=== PATIENT | female | born 1985 | race Caucasian/White ===

== ENCOUNTER 2017-01-02 02:49 | Inpatient (IN) | payer OTHER ==
[2017-01-02] VITALS (7 sets, daily range): BP systolic 112–133; BP diastolic 53–78; PULSE 86–104; RESP 16–20; TEMP 97.8–99; O2SAT 99–100
[2017-01-02] MEDS ORDERED: SODIUM CHLOR 0.9% 1000 ML INJ 1,000 ML IV ONE (03:00)
[2017-01-02] MEDS ORDERED: SODIUM CHLORIDE 0.9% FLUSH 10 ML FLUSH IVF PRN (03:00)
[2017-01-02] MEDS ORDERED: ONDANSETRON HCL 4 MG/2 ML VIAL IV ONE (03:00)
[2017-01-02] MEDS ORDERED: MORPHINE SULFATE 4 MG/ML INJ IV PUSH ONE (03:00)
[2017-01-02] MEDS ORDERED: MORPHINE SULFATE 8 MG/ML INJ IV PUSH ONE (03:15)
[2017-01-02] MEDS ORDERED: ONDANSETRON HCL 4 MG/2 ML VIAL ONE ×2 (03:31→17:32)
[2017-01-02] MEDS ORDERED: IOHEXOL 350 MG/ML 10 ML VIAL (for RAD DIAG) IV ONE (03:40)
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
[2017-01-02 04:08] LABS: AUTOMATED NEUTROPHIL # 14.2 TH/MM3 (1.8-7.7); BASOPHIL # 0.1 TH/MM3 (0-0.2); BASOPHIL % 0.4 % (0.0-2.0); EOSINOPHIL # 0.3 TH/MM3 (0-0.4); EOSINOPHIL % 1.3 % (0.0-4.0); HEMATOCRIT 30.8 % (35.0-46.0); HEMO FLAGS DIFF FINAL; LYMPH % 19.6 % (9.0-44.0); LYMPHOCYTE # 3.9 TH/MM3 (1.0-4.8); MEAN CELL VOLUME 81.8 FL (80.0-100.0); MEAN CORPUSCULAR HEMOGLOBIN 26.4 PG (27.0-34.0); MEAN CORPUSCULAR HGB CONC 32.3 % (32.0-36.0); NEUT % 71.7 % (16.0-70.0); PLATELET COUNT 408 TH/MM3 (150-450); RED BLOOD COUNT 3.76 MIL/MM3 (4.00-5.30); WHITE BLOOD COUNT 19.7 TH/MM3 (4.0-11.0)
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
[2017-01-02 04:21] LABS: INTERNATIONAL NORMALIZED RATIO 1.1 RATIO; PROTHROMBIN TIME - PATIENT 11.9 SEC (9.8-11.6)
[2017-01-02] MEDS ORDERED: PROPOFOL 200 MG/20 ML AMP IV ONE ×2 (04:30→12:00)
[2017-01-02 04:39] LABS: ALKALINE PHOSPHATASE 44 U/L (45-117); ALT (GPT) 47 U/L (10-53); ANION GAP 12 MEQ/L (5-15); AST (GOT) 40 U/L (15-37); BETA HCG QUANT LESS THAN 1 MIU/ML (0-5); BICARBONATE 21.1 MEQ/L (21.0-32.0); BLOOD UREA NITROGEN 8 MG/DL (7-18); CHLORIDE 106 MEQ/L (98-107); GLOMERULAR FILTRATION RATE 69 ML/MIN (>89); SODIUM (NA) 139 MEQ/L (136-145); TOTAL BILIRUBIN ADULT 0.2 MG/DL (0.2-1.0)
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
[2017-01-02 04:42] LABS: POTASSIUM 2.6 MEQ/L (3.5-5.1)
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
[2017-01-02] MEDS ORDERED: LORazepam 2 MG/ML VIAL IV PUSH ONE (05:00)
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
[2017-01-02] MEDS ORDERED: SODIUM CHLOR 0.9% 1000 ML INJ 1,000 ML IV SCH ×2 (06:00→06:37)
[2017-01-02] MEDS ORDERED: SODIUM CHLORIDE 0.9% FLUSH 10 ML FLUSH IV FLUSH PRN ×2 (06:45→21:15)
[2017-01-02] MEDS ORDERED: HYDROmorphone HCL PF 1 MG/ML VIAL IVP PRN (06:45)
[2017-01-02] MEDS ORDERED: ONDANSETRON HCL 4 MG/2 ML VIAL IV PRN (06:45)
[2017-01-02] MEDS ORDERED: ENALAPRILAT 1.25 MG/ML VIAL IV PRN (06:45)
[2017-01-02] MEDS ORDERED: MAGNESIUM HYDROXIDE SUSP 30 ML CUP PO PRN ×2 (06:45→21:15)
[2017-01-02] MEDS ORDERED: ACETAMINOPHEN/HYDROcodone 325 MG/5 MG TAB PO PRN ×2 (06:45)
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
[2017-01-02] MEDS ORDERED: LACTULOSE SYRUP 20 GM/30 ML CUP PO PRN ×2 (08:45→21:15)
[2017-01-02] MEDS ORDERED: DOCUSATE SODIUM 100 MG CAP PO SCH (09:00)
[2017-01-02] MEDS ORDERED: DOCUSATE SODIUM 50 MG/SENNA 8.6 MG TAB PO SCH (09:00)
[2017-01-02] MEDS ORDERED: PANTOPRAZOLE SODIUM 40 MG VIAL IVP SCH (09:00)
[2017-01-02] MEDS ORDERED: ONDANSETRON HCL 4 MG/2 ML VIAL IV PUSH ONE (12:00)
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
[2017-01-02] MEDS ORDERED: ceFAZolin INJ 1,000 MG VIAL ONE (17:15)
[2017-01-02] MEDS ORDERED: GENTAMICIN SULFATE 80 MG/2 ML VIAL ONE (17:15)
[2017-01-02] MEDS ORDERED: MIDAZOLAM HCL 2 MG/2 ML VIAL ONE (17:28)
[2017-01-02] MEDS ORDERED: FAMOTIDINE 20 MG/2 ML VIAL ONE (17:28)
[2017-01-02] MEDS ORDERED: ACETAMINOPHEN 1000 MG/100 ML VIAL IV ONE (17:33)
[2017-01-02] MEDS ORDERED: POTASSIUM CHLOR 20 MEQ PREMIX 100 ML ONE (17:54)
[2017-01-02] MEDS ORDERED: SUGAMMADEX SODIUM 200 MG/2 ML VIAL IV PUSH ONE ×2 (19:33)
[2017-01-02] MEDS ORDERED: HYDROmorphone HCL PF 2 MG/ML VIAL ONE (19:34)
--- NOTE | 2017-01-02 20:40 | RADRPT ---
EXAM DATE/TIME: 01/02/2017 20:07 [facility] COMPARISON: FOOT LEFT COMPLETE ([id number]), January 02, 2017, 6:35. ANKLE RIGHT LIMITED (AP&LAT), January 02, 2017, 4:38 . FOOT RIGHT LIMITED (2VWS), January 02, 2017, 3:58. ANKLE RIGHT COMPLETE ([id number]), January 02, 2017, 3: 44. INDICATIONS : ORIF right ankle. MEDICAL HISTORY : None. SURGICAL HISTORY : None. ENCOUNTER: Initial ACUITY: 1 day PAIN SCORE: 0/10 LOCATION: Right ankle FINDINGS: Side plate and multiple screws traverse the tibia and fibula with excellent anatomical alignment of t he fracture fragments. CONCLUSION: Intact postsurgical changes for technique. Shauna Ramírez MD on January 02, 2017 at 20:38 Board Certified Radiologist. This report was verified electronically.
[2017-01-02] MEDS ORDERED: fentaNYL CITRATE 250 MCG/5 ML AMP ONE (20:57)
[2017-01-02] MEDS ORDERED: *morphine SULFATE 8 MG/ML PERIprocedure ONLY ONE ×2 (21:08→21:20)
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
[2017-01-02] MEDS ORDERED: TEMAZEPAM 15 MG CAP PO PRN (21:15)
[2017-01-02] MEDS ORDERED: MISCELLANEOUS PHARMACY INFORMATION XX ONE (21:15)
[2017-01-02] MEDS ORDERED: ALUMINUM/MAGNESIUM/SIMETH 30 ML CUP PO PRN (21:15)
[2017-01-02] MEDS ORDERED: NALOXONE HCL 0.4 MG/ML AMP IV PRN (21:15)
[2017-01-02] MEDS ORDERED: oxyCODONE/ACETAMINOPHEN 5 MG/325 MG TAB PO PRN ×2 (21:15)
[2017-01-02] MEDS ORDERED: MISCELLANEOUS NURSING INFORMATION XX PRN (21:15)
[2017-01-02] MEDS ORDERED: Post-op Orders (for Pharmacy) MISC XX ONE (21:15)
[2017-01-02] MEDS ORDERED: BISACODYL 10 MG SUPP RECTAL PRN (21:15)
[2017-01-02] MEDS ORDERED: MORPHINE SULFATE 30 MG/30 ML PCA IV SCH (21:15)
[2017-01-02] MEDS ORDERED: SENNOSIDES 8.6 MG TAB PO PRN (21:15)
[2017-01-02] MEDS ORDERED: MORPHINE SULFATE 8 MG/ML INJ IV PUSH PRN (21:15)
[2017-01-02] MEDS ORDERED: ACETAMINOPHEN 325 MG TAB PO PRN (21:15)
[2017-01-02] MEDS ORDERED: *HYDROmorphone PF 1 MG VIAL PERIprocedural Use ONLY ONE (21:32)
[2017-01-02] MEDS: LACTATED RINGER'S 1000 ML INJ 1,000 ML IV SCH (21:40)
[2017-01-02] MEDS ORDERED: DO NOT ADM ANY ANTICOAGULANT DRUGS PRN (21:45)
[2017-01-02] MEDS: PCA - TOTAL MG MORPHINE DELIVERED PER SHIFT SCH (22:00)
[2017-01-02] MEDS: ONDANSETRON HCL 4 MG/2 ML VIAL IVP PRN (22:43)
[2017-01-02] MEDS ORDERED: GADODIAMIDE PF 287 MG/ML 5 ML VIAL (for RAD MRI) IV ONE (23:22)
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
[2017-01-02] MEDS: ceFAZolin 2 GM PREMIX 50 ML IV SCH (23:45)
--- NOTE | 2017-01-02 23:48 | RADRPT ---
EXAM DATE/TIME: 01/02/2017 22:55 This report includes an Addendum and supersedes previous reports for this exam. [facility] COMPARISON: CT BRAIN W/O CONTRAST, January 02, 2017, 3:20. INDICATIONS : CVA. Facial droop post op. CONTRAST: 14 cc Omniscan (gadodiamide) IV MEDICAL HISTORY : None. SURGICAL HISTORY : Right ankle surgery. ENCOUNTER: Subsequent ACUITY: 1 day PAIN SCORE: 0/10 LOCATION: head. TECHNIQUE: Multiplanar, multisequence MRI of the brain was performed both prior to and following the administrat ion of paramagnetic contrast. FINDINGS: CEREBRUM: The ventricles are normal for age. No evidence of midline shift, mass lesion, hemorrhage. No extraa xial fluid collections are seen. The pituitary gland and suprasellar cistern are normal in configura tion. WHITE MATTER: No significant signal abnormalities are seen in the white matter. POSTERIOR FOSSA: The cerebellum and brainstem are intact. The 4th ventricle is midline. The cerebellopontine angle is unremarkable. The cerebellar tonsils are normal in position. DIFFUSION IMAGING: There are multiple areas of restricted diffusion predominantly on the right side with a few small are as in the left occipital lobe. The more prominent areas of restricted diffusion are noted in the righ t occipital lobe. Several small areas of restricted diffusion are noted along the right cerebral vert ex. EXTRACRANIAL: The visualized portions of the orbits and paranasal sinuses are unremarkable. POST-CONTRAST: No abnormal areas of parenchymal or dural enhancement. No evidence of blood-brain barrier breakdown. CONCLUSION: 1. There are multiple areas of restricted diffusion predominantly involving the right occipital lobe as well as high along the right cerebral vertex. A few small areas of restricted diffusion are noted in the left occipital lobe. These findings would indicate focal areas of acute infarction. The multip licity suggests embolic etiology. 2. The rest examination is unremarkable. Hima Pisano MD on January 02, 2017 at 23:42 Board Certified Radiologist. This report was verified electronically. ADDENDUM: No acute intracranial hemorrhage is demonstrated. Hima Pisano MD on January 03, 2017 at 0:59 Board Certified Radiologist. This report was verified electronically.
[2017-01-03] VITALS (8 sets, daily range): BP systolic 94–124; BP diastolic 48–70; PULSE 71–102; RESP 16–18; TEMP 97.9–100.2; O2SAT 97–100
[2017-01-03] MEDS ORDERED: ASPIRIN 81 MG CHEW TAB PO ONE (02:00)
[2017-01-03] MEDS: ONDANSETRON HCL 4 MG/2 ML VIAL IVP PRN (02:18)
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
[2017-01-03] MEDS: PCA - TOTAL MG MORPHINE DELIVERED PER SHIFT SCH ×2 (06:32→13:05)
[2017-01-03] MEDS: ceFAZolin 2 GM PREMIX 50 ML IV SCH ×2 (06:32→12:25)
--- NOTE | 2017-01-03 07:03 | PD.ORT.PN ---
Subjective Pain Scale: 6 Subjective Remarks The patient is awake and alert and answers questions appropriately. Her family is at the bedside. She does complain of pain. She feels that the splint is "tight". She also relates nausea with the oral pain medication. Objective Vitals Vital Signs Date Time Temp Pulse Resp B/P Pulse Ox O2 Delivery O2 Flow Rate FiO2 01/03/17 06:32 16 01/03/17 04:00 98.7 83 16 94/48 99 01/03/17 03:00 71 01/03/17 00:00 98.4 76 18 112/62 97 01/02/17 22:00 98.4 77 14 101/53 100 Simple Mask 4 01/02/17 21:45 90 14 103/57 97 Nasal Cannula 2 01/02/17 21:40 14 01/02/17 21:30 84 16 106/57 97 Nasal Cannula 2 01/02/17 21:15 88 16 111/59 100 Room Air 01/02/17 21:00 91 16 108/54 99 Room Air 01/02/17 20:46 99.4 89 18 99/61 94 Room Air 01/02/17 15:46 98.5 86 18 112/53 99 01/02/17 10:00 99.0 100 18 120/57 100 01/02/17 07:57 104 16 123/65 100 Room Air I/O 01/02/17 01/02/17 01/02/17 01/03/17 01/03/17 01/03/17 07:00 15:00 23:00 07:00 15:00 23:00 Intake Total 1425 ml Output Total 50 ml Balance 1375 ml Intake IV Total 125 ml Other 1300 ml Output Estimated Blood Loss 50 ml Result Diagram: 01/02/17 0300 01/02/17 0300 Imaging Last 24 hours Impressions Brain MRI 01/02/172111 Signed Impressions: Service Date/Time: Monday, January 02, 2017 22:55 - CONCLUSION: 1. There are multiple areas of restricted diffusion predominantly involving the right occipital lobe as well as high along the right cerebral vertex. A few small areas of restricted diffusion are noted in the left occipital lobe. These findings would indicate focal areas of acute infarction. The multiplicity suggests embolic etiology. 2. The rest examination is unremarkable. Hima Pisano MD ADDENDUM: No acute intracranial hemorrhage is demonstrated. Hima Pisano MD Objective Remarks The right lower extremity splint is intact. She moves her toes freely. She has slight decreased sensation of the tips. She denies calf pain. Assessment & Plan Ortho Post Op Day #: 1 Problem List: (1) Displaced bimalleolar fracture of right lower leg (2) Fracture dislocation of right ankle Assessment and Plan The findings were discussed. The anterior part of the splint including the soft roll to the skin was opened. Will change pain medication secondary to the nausea with the oxycodone. Anticipate discharge 1-2 days depending on pain control. Rowdy Sherman MD Jan 03, 2017 07:03
--- NOTE | 2017-01-03 07:44 | HHI.PR ---
Subjective Remarks sr no hx ivda Objective Vital Signs Date Time Temp Pulse Resp B/P Pulse Ox O2 Delivery O2 Flow Rate FiO2 01/03/17 06:32 16 01/03/17 04:00 98.7 83 16 94/48 99 01/03/17 03:00 71 01/03/17 00:00 98.4 76 18 112/62 97 01/02/17 22:00 98.4 77 14 101/53 100 Simple Mask 4 01/02/17 21:45 90 14 103/57 97 Nasal Cannula 2 01/02/17 21:40 14 01/02/17 21:30 84 16 106/57 97 Nasal Cannula 2 01/02/17 21:15 88 16 111/59 100 Room Air 01/02/17 21:00 91 16 108/54 99 Room Air 01/02/17 20:46 99.4 89 18 99/61 94 Room Air 01/02/17 15:46 98.5 86 18 112/53 99 01/02/17 10:00 99.0 100 18 120/57 100 01/02/17 07:57 104 16 123/65 100 Room Air I/O 01/02/17 01/02/17 01/02/17 01/03/17 01/03/17 01/03/17 07:00 15:00 23:00 07:00 15:00 23:00 Intake Total 1425 ml Output Total 50 ml Balance 1375 ml Intake IV Total 125 ml Other 1300 ml Output Estimated Blood Loss 50 ml Result Diagram: 01/02/17 0300 01/02/17 0300 Objective Remarks vff left lower droop 5/5 t/o awake alert Assessment and Plan Assessment and Plan imp bilat acute cva likley cardiogenic ct chest i reviewed with rads this am heart and aorta ok cta neck an the cow looks ok cva meyers have cards see cynthia xarelto ok got asa last pm was on bcp not much fh for clots or cva Marcio Camacho MD Jan 03, 2017 07:44
[2017-01-03] MEDS: SODIUM CHLORIDE 0.9% FLUSH 10 ML FLUSH IV FLUSH SCH ×2 (09:00→20:05)
[2017-01-03] MEDS: FAMOTIDINE 20 MG TAB PO SCH ×2 (09:27→20:04)
[2017-01-03] MEDS: LACTULOSE SYRUP 20 GM/30 ML CUP PO SCH (09:27)
[2017-01-03] MEDS: DOCUSATE SODIUM 50 MG/SENNA 8.6 MG TAB PO SCH ×2 (09:28→20:05)
[2017-01-03] MEDS: LACTATED RINGER'S 1000 ML INJ 1,000 ML IV SCH ×2 (09:29→21:52)
[2017-01-03] MEDS: HYDROmorphone HCL 2 MG TAB PO PRN ×2 (09:40→20:30)
[2017-01-03] MEDS: levETIRAcetam 500 MG TAB PO SCH ×2 (13:05→20:04)
[2017-01-03] MEDS: QUEtiapine FUMARATE 25 MG TAB PO SCH ×2 (13:05→22:00)
[2017-01-03 13:13] LABS: BASOPHIL % 0.3 % (0.0-2.0); EOSINOPHIL % 0.3 % (0.0-4.0); HEMATOCRIT 26.4 % (35.0-46.0); HEMO FLAGS DIFF FINAL; LYMPH % 9.7 % (9.0-44.0); LYMPHOCYTE # 0.9 TH/MM3 (1.0-4.8); MEAN CELL VOLUME 81.9 FL (80.0-100.0); MEAN CORPUSCULAR HEMOGLOBIN 27.3 PG (27.0-34.0); MEAN CORPUSCULAR HGB CONC 33.3 % (32.0-36.0); MONO % 10.8 % (0.0-8.0); NEUT % 78.9 % (16.0-70.0); PLATELET COUNT 268 TH/MM3 (150-450); RED BLOOD COUNT 3.23 MIL/MM3 (4.00-5.30); RED CELL DISTRIBUTION WIDTH 14.7 % (11.6-17.2); WHITE BLOOD COUNT 8.8 TH/MM3 (4.0-11.0)
[2017-01-03] MEDS: HYDROmorphone HCL 4 MG TAB PO PRN (13:27)
[2017-01-03 13:31] LABS: ANION GAP 8 MEQ/L (5-15); AST (GOT) 29 U/L (15-37); BICARBONATE 23.8 MEQ/L (21.0-32.0); BLOOD UREA NITROGEN 3 MG/DL (7-18); CHLORIDE 109 MEQ/L (98-107); GLOMERULAR FILTRATION RATE 116 ML/MIN (>89); POTASSIUM 3.6 MEQ/L (3.5-5.1); SODIUM (NA) 141 MEQ/L (136-145)
[2017-01-03 13:42] LABS: ALKALINE PHOSPHATASE 39 U/L (45-117); ALT (GPT) 39 U/L (10-53); TOTAL BILIRUBIN ADULT 0.3 MG/DL (0.2-1.0)
[2017-01-03 13:58] LABS: CREATINE KINASE 414 U/L (26-192); FREE T4 1.31 NG/DL (0.76-1.46); HDL CHOLESTEROL 52.2 MG/DL (40.0-60.0); LDL CHOLESTEROL 79 MG/DL (0-99); TOTAL PROTEIN SPE 6.8 GM/DL (6.0-7.6)
[2017-01-03 14:14] LABS: CKMB 2.2 NG/ML (0.5-3.6)
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
[2017-01-03] MEDS: GABAPENTIN 300 MG CAP PO SCH (17:27)
[2017-01-03] MEDS: RIVAROXABAN 10 MG TAB PO SCH (20:04)
--- NOTE | 2017-01-03 22:18 | ECHRPT ---
Indication: CVA/TIA CONCLUSIONS Normal left ventricular size. Wall thickness is normal. The left ventricular systolic function is normal with an estimated ejection fraction in the range of 55-60%. No regional wall motion abnormalities are present. Left ventricular diastolic function parameters are normal. Structurally normal tricuspid valve. There is trace tricuspid valve regurgitation. Normal estimated pulmonary pressures. BP: 94 / 48 HR: 83 Rhythm: Sinus MEASUREMENTS (Male / Female) Normal Values Technical Quality:Fair 2D ECHO LV Diastolic Diameter PLAX 5.0 cm 4.2 - 5.9 / 3.9 - 5.3 cm LV Systolic Diameter PLAX 3.8 cm IVS Diastolic Thickness 0.7 cm 0.6 - 1.0 / 0.6 - 0.9 cm LVPW Diastolic Thickness 0.7 cm 0.6 - 1.0 / 0.6 - 0.9 cm LV Relative Wall Thickness 0.3 LVOT Diameter 1.9 cm Aortic Root Diameter 2.6 cm LA Systolic Diameter LX 3.7 cm 3.0 - 4.0 / 2.7 - 3.8 cm M-MODE AV Cusp Separation MM 2.0 cm DOPPLER AV Peak Velocity 143.0 cm/s AV Peak Gradient 8.2 mmHg AV Mean Gradient 5.0 mmHg AV Velocity Time Integral 28.0 cm LVOT Peak Velocity 108.0 cm/s LVOT Peak Gradient 4.7 mmHg LVOT Velocity Time Integral 20.6 cm LVOT Cardiac Index 2765.8 cm/minm AV Area Cont Eq vti 2.1 cm AV Area Cont Eq pk 2.1 cm Mitral E Point Velocity 113.0 cm/s Mitral A Point Velocity 62.7 cm/s Mitral E to A Ratio 1.8 LV E' Lateral Velocity 17.6 cm/s Mitral E to LV E' Lateral Ratio 6.4 LV E' Septal Velocity 11.2 cm/s Mitral E to LV E' Septal Ratio 10.1 TR Peak Velocity 212.0 cm/s TR Peak Gradient 18.0 mmHg PV Peak Velocity 81.2 cm/s PV Peak Gradient 2.6 mmHg FINDINGS LEFT VENTRICLE Normal left ventricular size. Wall thickness is normal. The left ventricular systolic function is normal with an estimated ejection fraction in the range of 55-60%. No regional wall motion abnormalities are present. Left ventricular diastolic function parameters are normal. TRICUSPID VALVE Structurally normal tricuspid valve. There is trace tricuspid valve regurgitation. Normal estimated pulmonary pressures. Alicia Prater MD, FACC (Electronically Signed) Final Date:03 January 2017 22:18
[2017-01-03] MEDS ORDERED: SODIUM CHLORID 0.9% 500 ML IV PRN (23:30)
[2017-01-03] MEDS ORDERED: CHLORHEXIDINE GLUCONATE 2 % 1 PACK (2 CLOTHS) TOPICAL PRN (23:30)
[2017-01-03] MEDS ORDERED: LACTATED RINGER'S 1000 ML IV PRN (23:30)
[2017-01-03] MEDS ORDERED: POVIDONE IODINE 5% (ANTISEPSIS KIT) 4 APPLICATIONS EACH NARE PRN (23:30)
[2017-01-03] MEDS ORDERED: INSULIN HUMAN REGULAR 1,000 UNITS/10 ML VIAL SQ PRN (23:30)
[2017-01-03] MEDS ORDERED: METOPROLOL TARTRATE 25 MG TAB PO PRN (23:30)
[2017-01-04] VITALS (7 sets, daily range): BP systolic 105–116; BP diastolic 56–85; PULSE 90–103; RESP 17–18; TEMP 98.1–100.6; O2SAT 96–99
[2017-01-04] MEDS: HYDROmorphone HCL 2 MG TAB PO PRN (01:48)
[2017-01-04] MEDS ORDERED: XARE10TA PO (07:20)
--- NOTE | 2017-01-04 07:30 | HHI.PR ---
Subjective Remarks sr no hx ivda Objective Vital Signs Date Time Temp Pulse Resp B/P Pulse Ox O2 Delivery O2 Flow Rate FiO2 01/04/17 04:00 98.1 01/04/17 00:00 99.9 97 17 105/85 98 01/03/17 20:00 99.9 92 16 117/70 100 01/03/17 16:00 100.2 102 18 124/67 100 01/03/17 13:05 17 01/03/17 12:00 97.9 86 18 102/58 99 01/03/17 10:42 71 01/03/17 08:00 98.0 80 16 104/49 100 I/O 01/03/17 01/03/17 01/03/17 01/04/17 01/04/17 01/04/17 07:00 15:00 23:00 07:00 15:00 23:00 Intake Total 600 ml 480 ml 240 ml Balance 600 ml 480 ml 240 ml Intake Oral 600 ml 480 ml 240 ml # Voids 2 4 # Bowel Movements 0 0 Result Diagram: 01/03/17 1245 01/03/17 1245 Objective Remarks vff left lower droop 5/5 t/o awake alert no change Assessment and Plan Assessment and Plan imp bilat acute cva likley cardiogenic ct chest i reviewed with rads this am heart and aorta ok cta neck an the cow looks ok cva meyers pend have cards see cynthia today xarelto ok echo nl was on bcp dc that not much fh for clots or cva fu holter if cynthia neg ok to dc on xarelto and fu office'' Marcio Camacho MD Jan 04, 2017 07:30
[2017-01-04] MEDS: DOCUSATE SODIUM 50 MG/SENNA 8.6 MG TAB PO SCH ×2 (09:00→20:00)
[2017-01-04] MEDS: QUEtiapine FUMARATE 25 MG TAB PO SCH ×2 (09:32→13:39)
[2017-01-04] MEDS: SODIUM CHLORIDE 0.9% FLUSH 10 ML FLUSH IV FLUSH SCH ×2 (09:33→20:03)
[2017-01-04] MEDS: GABAPENTIN 300 MG CAP PO SCH ×3 (09:35→20:00)
[2017-01-04] MEDS: LACTULOSE SYRUP 20 GM/30 ML CUP PO SCH (09:35)
[2017-01-04] MEDS: FAMOTIDINE 20 MG TAB PO SCH ×2 (09:36→20:00)
[2017-01-04] MEDS: levETIRAcetam 500 MG TAB PO SCH ×2 (09:36→20:01)
[2017-01-04 09:50] LABS: RAPID PLASMA REAGIN SCREEN NON-REACTIVE (NON-REACTVE)
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
[2017-01-04] MEDS: LACTATED RINGER'S 1000 ML INJ 1,000 ML IV SCH ×2 (13:22→22:39)
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
--- NOTE | 2017-01-04 14:20 | PD.ORT.PN ---
Subjective Post Op Day #: 2 Subjective Remarks Pt sitting upright in bed, accompanied by her family. She admits the splint feels 'very tight'. Otherwise admits pain is controlled. States she has walked with PT. She states she will follow up with orthopedics back home in [facility] upon discharge. Objective Vitals Vital Signs Date Time Temp Pulse Resp B/P Pulse Ox O2 Delivery O2 Flow Rate FiO2 01/04/17 12:00 98.5 92 18 108/60 97 01/04/17 08:00 100.6 95 18 116/58 97 01/04/17 04:00 98.1 01/04/17 00:00 99.9 97 17 105/85 98 01/03/17 20:00 99.9 92 16 117/70 100 01/03/17 16:00 100.2 102 18 124/67 100 I/O 01/03/17 01/03/17 01/03/17 01/04/17 01/04/17 01/04/17 06:59 14:59 22:59 06:59 14:59 22:59 Intake Total 600 ml 480 ml 240 ml Balance 600 ml 480 ml 240 ml Intake Oral 600 ml 480 ml 240 ml # Voids 2 4 # Bowel Movements 0 0 Result Diagram: 01/03/17 1245 01/03/17 1245 Imaging Last 24 hours Impressions Brain MRI 01/02/172111 Signed Impressions: Service Date/Time: Monday, January 02, 2017 22:55 - CONCLUSION: 1. There are multiple areas of restricted diffusion predominantly involving the right occipital lobe as well as high along the right cerebral vertex. A few small areas of restricted diffusion are noted in the left occipital lobe. These findings would indicate focal areas of acute infarction. The multiplicity suggests embolic etiology. 2. The rest examination is unremarkable. Hima Pisano MD ADDENDUM: No acute intracranial hemorrhage is demonstrated. Hima Pisano MD Objective Remarks The right lower extremity splint is intact. She moves her toes freely. She has slight decreased sensation of the tips. She denies calf pain. Assessment & Plan Ortho Post Op Day #: 2 Problem List: (1) Displaced bimalleolar fracture of right lower leg (2) Fracture dislocation of right ankle Assessment and Plan Open reduction internal fixation right bimalleolar ankle fracture POD #2 Ortho status stable. Discussed care with RN - ok to have orthotech loosen deyanira wrap but do not remove splint due to nature of splint. Progress rehab - non w/b, for gait training and strengthening. Xarelto for DVT prophylaxis. Strict follow up with orthopedist upon discharge. Clear for discharge from an orthopedic standpoint. Megan Piña Jan 04, 2017 14:19
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
[2017-01-04] MEDS: RIVAROXABAN 10 MG TAB PO SCH (20:01)
[2017-01-04] MEDS: HYDROmorphone HCL 4 MG TAB PO PRN (21:20)
[2017-01-04 21:33] LABS: ALBUMIN SPE 3.78 GM/DL (3.50-5.00); ALPHA 1 GLOBULIN 0.32 GM/DL (0.11-0.29); ALPHA 2 GLOBULIN 0.86 GM/DL (0.22-1.00); BETA GLOBULINS (SPE) 0.79 GM/DL (0.53-1.03)
[2017-01-05 04:30] VITALS: BP 111/59; PULSE 81; RESP 16; TEMP 98; O2SAT 99
[2017-01-05 05:35] LABS: AUTOMATED NEUTROPHIL # 4.2 TH/MM3 (1.8-7.7); BASOPHIL % 0.4 % (0.0-2.0); EOSINOPHIL # 0.2 TH/MM3 (0-0.4); HEMO FLAGS DIFF FINAL; LYMPH % 24.4 % (9.0-44.0); LYMPHOCYTE # 1.7 TH/MM3 (1.0-4.8); MEAN CELL VOLUME 82.5 FL (80.0-100.0); MEAN CORPUSCULAR HEMOGLOBIN 26.8 PG (27.0-34.0); MEAN CORPUSCULAR HGB CONC 32.5 % (32.0-36.0); MONO % 11.5 % (0.0-8.0); NEUT % 60.7 % (16.0-70.0); PLATELET COUNT 321 TH/MM3 (150-450); RED BLOOD COUNT 3.15 MIL/MM3 (4.00-5.30); RED CELL DISTRIBUTION WIDTH 14.6 % (11.6-17.2); WHITE BLOOD COUNT 6.9 TH/MM3 (4.0-11.0)
[2017-01-05 06:02] LABS: ANION GAP 9 MEQ/L (5-15); AST (GOT) 13 U/L (15-37); BICARBONATE 26.4 MEQ/L (21.0-32.0); BLOOD UREA NITROGEN 4 MG/DL (7-18); CHLORIDE 106 MEQ/L (98-107); GLOMERULAR FILTRATION RATE 121 ML/MIN (>89); POTASSIUM 3.6 MEQ/L (3.5-5.1); SODIUM (NA) 141 MEQ/L (136-145)
[2017-01-05 06:05] LABS: ALKALINE PHOSPHATASE 38 U/L (45-117); ALT (GPT) 24 U/L (10-53); TOTAL BILIRUBIN ADULT 0.4 MG/DL (0.2-1.0)
--- NOTE | 2017-01-05 07:44 | HHI.PR ---
Subjective Remarks sr no hx ivda Objective Vital Signs Date Time Temp Pulse Resp B/P Pulse Ox O2 Delivery O2 Flow Rate FiO2 01/05/17 04:30 98.0 81 16 111/59 99 01/04/17 23:10 100.1 103 17 112/57 96 01/04/17 22:39 18 01/04/17 20:15 96 01/04/17 20:15 99.8 91 18 114/60 98 01/04/17 17:39 100.3 90 18 112/56 99 01/04/17 12:00 98.5 92 18 108/60 97 01/04/17 08:00 100.6 95 18 116/58 97 I/O 01/04/17 01/04/17 01/04/17 01/05/17 01/05/17 01/05/17 07:00 15:00 23:00 07:00 15:00 23:00 Intake Total 240 ml 0 ml 1460 ml 480 ml Balance 240 ml 0 ml 1460 ml 480 ml Intake Oral 240 ml 0 ml 660 ml 480 ml IV Total 800 ml # Voids 3 3 2 # Bowel Movements 0 1 0 Result Diagram: 01/05/17 0438 01/05/17 0438 Objective Remarks vff left lower droop a little better 5/5 t/o awake alert no change Assessment and Plan Assessment and Plan imp bilat acute cva likley cardiogenic ct chest i reviewed with rads this am heart and aorta ok cta neck an the cow looks ok cva meyers pend have cards see cynthia today ? neg no dictation in chart xarelto ok echo nl was on bcp dc that not much fh for clots or cva fu holter neg if cynthia neg ok to dc on xarelto and fu office'' she will be on xarelto now and change to 81 asa when that is dced we zee do o/p cardionet unclear to me why on keppra and who started it nurse to look into it Marcio Camacho MD Jan 05, 2017 07:44
[2017-01-05] MEDS: GABAPENTIN 300 MG CAP PO SCH ×3 (07:54→17:30)
[2017-01-05] MEDS: FAMOTIDINE 20 MG TAB PO SCH (07:54)
[2017-01-05] MEDS: DOCUSATE SODIUM 50 MG/SENNA 8.6 MG TAB PO SCH (07:54)
[2017-01-05] MEDS: levETIRAcetam 500 MG TAB PO SCH (07:55)
[2017-01-05] MEDS: HYDROmorphone HCL 4 MG TAB PO PRN ×3 (07:55→18:16)
[2017-01-05] MEDS: LACTULOSE SYRUP 20 GM/30 ML CUP PO SCH (07:59)
[2017-01-05 08:00] VITALS: BP 117/65; PULSE 78; RESP 18; TEMP 97.1; O2SAT 98
--- NOTE | 2017-01-05 08:08 | PD.ORT.PN ---
Subjective Post Op Day #: 3 Subjective Remarks Pt sitting upright in bed, accompanied by her family. She admits the splint feels better today. Admits pain well controlled. States she has walked with PT. She states she will follow up with orthopedics back home in [facility] upon discharge. Objective Vitals Vital Signs Date Time Temp Pulse Resp B/P Pulse Ox O2 Delivery O2 Flow Rate FiO2 01/05/17 04:30 98.0 81 16 111/59 99 01/04/17 23:10 100.1 103 17 112/57 96 01/04/17 22:39 18 01/04/17 20:15 96 01/04/17 20:15 99.8 91 18 114/60 98 01/04/17 17:39 100.3 90 18 112/56 99 01/04/17 12:00 98.5 92 18 108/60 97 I/O 01/04/17 01/04/17 01/04/17 01/05/17 01/05/17 01/05/17 07:00 15:00 23:00 07:00 15:00 23:00 Intake Total 240 ml 0 ml 1460 ml 480 ml Balance 240 ml 0 ml 1460 ml 480 ml Intake Oral 240 ml 0 ml 660 ml 480 ml IV Total 800 ml # Voids 3 3 2 # Bowel Movements 0 1 0 Result Diagram: 01/05/17 0438 01/05/17 0438 Imaging Last 24 hours Impressions Brain MRI 01/02/172111 Signed Impressions: Service Date/Time: Monday, January 02, 2017 22:55 - CONCLUSION: 1. There are multiple areas of restricted diffusion predominantly involving the right occipital lobe as well as high along the right cerebral vertex. A few small areas of restricted diffusion are noted in the left occipital lobe. These findings would indicate focal areas of acute infarction. The multiplicity suggests embolic etiology. 2. The rest examination is unremarkable. Hima Pisano MD ADDENDUM: No acute intracranial hemorrhage is demonstrated. Hima Pisano MD Objective Remarks The right lower extremity splint is intact. She moves her toes freely. She has slight decreased sensation of the tips. She denies calf pain. Assessment & Plan Ortho Post Op Day #: 3 Problem List: (1) Displaced bimalleolar fracture of right lower leg (2) Fracture dislocation of right ankle Assessment and Plan Open reduction internal fixation right bimalleolar ankle fracture POD #3 Ortho status stable. Splint precautions Progress rehab - non w/b, for gait training and strengthening. Xarelto for DVT prophylaxis. Strict follow up with orthopedist upon discharge. Clear for discharge from an orthopedic standpoint. Would rec. [facility] [place], wheelchair and walker. Megan Piña Jan 05, 2017 08:08
[2017-01-05] MEDS ORDERED: WALKER WHEELS/F1 MIS (08:21)
[2017-01-05] MEDS ORDERED: WHEEMIS3 (08:21)
--- NOTE | 2017-01-05 08:31 | HHI.FF ---
Face to Face Verification Diagnosis: (1) Acute CVA (cerebrovascular accident) (2) Fracture dislocation of right ankle Physical Therapy Order: Evaluate and Treat, Improve ambulation, Strength and gait training Home Health Nursing Order: Nursing assessment with vital signs I have seen patient Janie Mckeon on 01/05/17. My clinical findings support the need for the requested home health care services because: Ltd mobility - disease progression Limited ability to care for self High risk of falls I certify that my clinical findings support that this patient is homebound because: Unsteady gait/balance Frances Ford Jan 05, 2017 08:30
[2017-01-05] MEDS ORDERED: DILA2TAB2 PO (10:58)
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
[2017-01-05] MEDS ORDERED: ASPI81CH CHEW (11:24)
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
[2017-01-05] MEDS: LACTATED RINGER'S 1000 ML INJ 1,000 ML IV SCH (11:39)
[2017-01-05 12:00] VITALS: BP 104/63; PULSE 86; RESP 18; TEMP 97.3; O2SAT 100
--- NOTE | 2017-01-05 12:51 | CF ---
cc: JAQUAN SANON PROCEDURE PERFORMED Transesophageal echocardiogram INDICATIONS Bilateral CVA, evaluation for cardiac source of emboli and PFO. PROCEDURE After the patient was sedated by anesthesia, a transesophageal probe was placed without difficulty. Tomographic images were obtained. Left ventricular function was preserved. The estimated ejection fraction of 55% with no significant wall motion abnormalities. The left atrial appendage was visualized and there was no evidence of left atrial thrombus. Aortic valve was structurally normal. There was no evidence of aortic stenosis or regurgitation. The mitral valve was structurally normal. There was no evidence of mitral stenosis, but there was evidence of trace mitral regurgitation. There was evidence of trace tricuspid regurgitation. Bubble study was performed and there was no evidence of right to left shunt. Descending thoracic aorta had no significant plaque. DIAGNOSIS 1. No evidence of left atrial thrombus. 2. No evidence of patent foramen ovale. 3. Preserved left ventricular systolic function. 4. Trace mitral regurgitation 5. Trace tricuspid regurgitation IMPRESSION No evidence of cardiac source of emboli. MD ADAM Heart/HOLA /4:10 PM /12:46 PM
[2017-01-05] MEDS: SODIUM CHLORIDE 0.9% FLUSH 10 ML FLUSH IV FLUSH SCH (13:59)
[2017-01-05 15:05] LABS: ANA SCREEN NEG (NEG)
[2017-01-05 16:00] VITALS: BP 107/55; PULSE 95; RESP 18; TEMP 98.2; O2SAT 98
[2017-01-05] MEDS: RIVAROXABAN 10 MG TAB PO SCH (18:16)
[2017-01-06 03:50] LABS: THROMBIN TIME FOR LA ND sec (13-19)
== END 2017-01-05 18:45 | disposition home or self-care (01) | DRG 492 ==
LOC: NEPC 02:49 → NEDH 06:32 → NEPFCDU 08:12 → N06B 16:55 → N06A 22:20
PROVIDERS: ADMIT Surgery; ATTEND Surgery
PROC: 0QSGXZZ Reposition Right Tibia, External Approach (ICD-10-PCS; 2017-01-02)
PROC: 0QSG04Z Reposition Right Tibia with Internal Fixation Device, Open Approach (ICD-10-PCS; principal; 2017-01-02 17:34)
DX: S82.841A Displaced bimalleolar fracture of right lower leg, initial encounter for closed fracture (principal); I63.9 Cerebral infarction, unspecified; S30.811A Abrasion of abdominal wall, initial encounter; R29.810 Facial weakness; V49.40XA Driver injured in collision with unspecified motor vehicles in traffic accident, initial encounter
CPT/HCPCS: 28435; 70450; 70498; 70553; 71260; 72125; 72141; 73600; 73610; 73620; 73630; 74177; 76000; 80053; 80061; 81240; 81241; 82550; 82552; 82607; 82746; 83921; 84165; 84425; 84439; 84443; 84484; 84702; 85025; 85240; 85300; 85303; 85306; 85597; 85610; 85613; 85652; 85730; 86038; 86140; 86147; 86592; 86850; 86900; 86901; 93225; 93226; 93306; 93312; 93320; 93325; 94150; 96374; 96375; 99152; A9579; C1713; C9113; J0131; J0690; J1170; J1580; J2060; J2250; J2270; J2405; J3010; J3480; J7030; J7120; Q9967